=== PATIENT | female | born 1970 | race Caucasian/White ===

== ENCOUNTER → 2016-08-28 | Day surgery (SDC) | payer BC ==
[~2016-08-28] MED LIST: BUPIVACAINE/EPINEPHRINE 0.25% 50 ML VIAL ONE; KETOROLAC TROMETHAMINE 30 MG/ML (IVP) VIAL IV PUSH ONE; LACTATED RINGER'S 1000 ML INJ 1,000 ML ONE; MEPERIDINE HCL 50 MG/ML VIAL ONE; MIDAZOLAM HCL 2 MG/2 ML VIAL ONE; MORPHINE SULFATE 4 MG/ML INJ ONE; NEOMYCIN/POLYMYXIN/BACITRACIN OINT 15 GM TUBE ONE; ONDANSETRON HCL 4 MG/2 ML VIAL IV PUSH ONE; PROPOFOL 200 MG/20 ML AMP IV ONE; XANA1TAB2 PO; ceFAZolin 2 GM PREMIX 50 ML ONE
--- NOTE | 2016-08-28 14:22 | TN ---
cc: NGUYỄN PITT M.D. DATE OF SURGERY: 08/28/2016 PREOPERATIVE DIAGNOSIS 1. Symptomatic enlarging supraumbilical hernia. 2. Hypertrophic scar umbilicus. POSTOPERATIVE DIAGNOSIS 1. Symptomatic enlarging supraumbilical hernia. 2. Hypertrophic scar umbilicus. PROCEDURE PERFORMED 1. Primary repair supraumbilical hernia. 2. Excision hypertrophic scar umbilicus. SURGEON Nguyễn Pitt MD ANESTHESIA General LMA. COMPLICATIONS None. INDICATION FOR PROCEDURE Ms. Crockett is a pleasant 46-year-old female who had a symptomatic enlarging mass just above her umbilicus. The patient does a lot of exercise and this made the mass larger and more uncomfortable. She was seen and evaluated and found to have a supraumbilical hernia. She was offered elective repair. The patient also had some redundant hypertrophic scar in her umbilicus from a previous laparoscopy. She asked if this could be excised at the same time. Risks and benefits of the procedures was discussed with her and she was agreeable. DETAILS OF PROCEDURE The patient was identified, brought to the operating room and placed supine on the operating table. After adequate general anesthesia was achieved with LMA, the anterior abdomen was prepped and draped in standard surgical fashion. Supraumbilical skin and subcutaneous tissue was anesthetized with 0.25% Marcaine. Supraumbilical incision was made. Dissection was carried down to subcutaneous tissue to the abdominal wall fascia. The abdominal wall fascia was then followed up where a small defect was identified with preperitoneal fat protruding through it. The fat was dissected circumferentially from the subcutaneous fat. Fat was then excised using electrocautery Bovie. The fascial defect was quite small and it was able to be closed primarily using a 0-Prolene interrupted x2. Once we did this the defect was closed under no tension. Attention was directed to the hypertrophic scar in the umbilicus. 0.25% Marcaine was injected around this. The hypertrophic scar was then grasped and then dissected out with a scalpel. It was excised and discarded. The defect was then closed with a 5-0 Monocryl interrupted x3. The umbilical incision was closed with 4-0 Monocryl. Sterile dressings were applied and the patient was awakened, brought to recovery in stable condition. MD JULIO Crawley/NATHEN /12:00 PM /2:13 PM
== END | disposition home or self-care (01) ==
LOC: ESDC 09:32
PROVIDERS: ATTEND Surgery Trauma Surgery
DX: K43.9 Ventral hernia without obstruction or gangrene (principal); L91.0 Hypertrophic scar
CPT/HCPCS: 00400; 00750; 13100; 49585; J0690; J1885; J2175; J2250; J2270; J2405; J3010; J7120

== ENCOUNTER 2016-11-29 17:13 | Emergency (ER) | payer BC ==
[~2016-11-29] VITALS: Ht 162.6 cm; Wt 56.9 kg
[~2016-11-29 17:13] MED LIST changes: -BUPIVACAINE/EPINEPHRINE 0.25% 50 ML VIAL ONE; -KETOROLAC TROMETHAMINE 30 MG/ML (IVP) VIAL IV PUSH ONE; -LACTATED RINGER'S 1000 ML INJ 1,000 ML ONE; -MEPERIDINE HCL 50 MG/ML VIAL ONE; -MIDAZOLAM HCL 2 MG/2 ML VIAL ONE; -MORPHINE SULFATE 4 MG/ML INJ ONE; -NEOMYCIN/POLYMYXIN/BACITRACIN OINT 15 GM TUBE ONE; -ONDANSETRON HCL 4 MG/2 ML VIAL IV PUSH ONE; -PROPOFOL 200 MG/20 ML AMP IV ONE; -ceFAZolin 2 GM PREMIX 50 ML ONE
[2016-11-29 17:20] VITALS: BP 115/58; PULSE 86; RESP 20; TEMP 97.9; O2SAT 98
[2016-11-29] MEDS ORDERED: SODIUM CHLOR 0.9% 1000 ML INJ 1,000 ML IV SCH (18:08)
[2016-11-29] MEDS ORDERED: ONDANSETRON HCL 4 MG/2 ML VIAL IVP ONE (18:15)
[2016-11-29] MEDS ORDERED: SODIUM CHLORIDE 0.9% FLUSH 10 ML FLUSH IV FLUSH PRN (18:15)
--- NOTE | 2016-11-29 18:18 | PD ---
HPI Chief Complaint: Flank/Kidney Pain Time Seen by Provider: 18:00 Travel History International Travel<30 days: No Contact w/Intl Traveler<30days: No Traveled to known affect area: No History of Present Illness HPI The patient is a 46-year-old female who presents emergency department for left flank pain at 3 days' duration. The patient notes left flank pain for last 3 days which is in the mid lumbar region and radiates to the left flank. She does complain of mild frequency with urination but denies any dysuria, urgency, or hematuria. The patient does have a history of similar symptoms in the past secondary to kidney stones and notes she is had multiple lithotripsies performed in the past and one previous stent placed by her urologist, Dr. Chawla. The patient has also been evaluated at the [facility] in the past for her recurrent kidney stones. She denies any fever, chills, or sweats. She does complain of mild nausea but denies any vomiting. Symptoms are moderate, possibly exacerbated by history of kidney stones, and there are no current alleviating factors. PFSH Past Medical History Asthma: Yes (BRONCHITIS) Blood Disorders: No Anxiety: No Depression: No Cancer: No Cardiovascular Problems: No Chest Pain: Yes (NEW) Diabetes: No Diminished Hearing: No Endocrine: No Glaucoma: No Genitourinary: Yes (KIDNEY STONES) Hepatitis: No Hiatal Hernia: No Hypertension: No Immune Disorder: No Kidney Stones: Yes Musculoskeletal: No Neurologic: No Psychiatric: No Reproductive: No Respiratory: No Thyroid Disease: No LMP: 5 DAYS AGO : 3 Para: 1 Miscarriage: 1 : 1 Past Surgical History AICD: No Body Medical Devices: BREAST IMPLANTED Ear Surgery: No Endocrine Surgery: No Eye Surgery: No Genitourinary Surgery: Yes (LITHOTRIPSY X 4/CYSTOSCOPY) Gynecologic Surgery: No Joint Replacement: No Oral Surgery: No Pacemaker: No Thoracic Surgery: No Other Surgery: Yes (KIDNEY STONE REMOVAL) Social History Alcohol Use: No Tobacco Use: No (QUIT 08/02) Substance Use: No Allergies-Medications (Allergen,Severity, Reaction): Coded Allergies: Acetaminophen (Verified Allergy, Severe, HIVES/STOMACH UPSET, 11/29/16) Reported Meds & Prescriptions Reported Meds & Active Scripts Active Reported Xanax (Alprazolam) 1 Mg Tab 1 Mg PO Q6H PRN Review of Systems Except as stated in HPI: all other systems reviewed are Neg General / Constitutional: No: Fever Cardiovascular: No: Chest Pain or Discomfort Respiratory: No: Shortness of Breath Gastrointestinal: Positive: Nausea, No: Vomiting, Diarrhea, Abdominal Pain Genitourinary: Positive: Flank Pain, No: Urgency, Dysuria, Hematuria Skin: No Rash Physical Exam Narrative GENERAL: Awake, alert, pleasant 46 year-old female who appears her stated age and is in no acute respiratory distress. SKIN: Focused skin assessment warm/dry. HEAD: Atraumatic. Normocephalic. EYES: Pupils equal and round. No scleral icterus. No injection or drainage. ENT: No nasal bleeding or discharge. Mucous membranes pink and moist. NECK: Trachea midline. No JVD. CARDIOVASCULAR: Regular rate and rhythm. No murmur appreciated. RESPIRATORY: No accessory muscle use. Clear to auscultation. Breath sounds equal bilaterally. GASTROINTESTINAL: Abdomen soft, minimal left flank tenderness. Back: Left CVA tenderness. MUSCULOSKELETAL: No obvious deformities. No clubbing. No cyanosis. No edema. NEUROLOGICAL: Awake and alert. No obvious cranial nerve deficits. Motor grossly within normal limits. Normal speech. PSYCHIATRIC: Appropriate mood and affect; insight and judgment normal. Data Data Last Documented VS Vital Signs Date Time Temp Pulse Resp B/P Pulse Ox O2 Delivery O2 Flow Rate FiO2 11/29/16 18:36 16 99 11/29/16 17:20 97.9 86 115/58 Orders Complete Blood Count With Diff (11/29/16 18:08) Comprehensive Metabolic Panel (11/29/16 18:08) Lipase (11/29/16 18:08) Urinalysis - C+S If Indicated (11/29/16 18:08) Ct Abd/Pel W/O Iv Contrast (11/29/16 18:08) Iv Access Insert/Monitor (11/29/16 18:08) Ecg Monitoring (11/29/16 18:08) Oximetry (11/29/16 18:08) Ondansetron Inj (Zofran Inj) (11/29/16 18:15) Sodium Chlor 0.9% 1000 Ml Inj (Ns 1000 M (11/29/16 18:08) Sodium Chloride 0.9% Flush (Ns Flush) (11/29/16 18:15) Ed Urine Pregnancytest Poc (11/29/16 18:08) Labs Laboratory Tests Test 11/29/16 11/29/16 18:30 18:35 Urine Color STRAW Urine Turbidity CLOUDY Urine pH 7.0 Urine Specific [place] 1.010 Urine Protein NEG mg/dL Urine Glucose (UA) NEG mg/dL Urine Ketones NEG mg/dL Urine Occult Blood NEG Urine Nitrite NEG Urine Bilirubin NEG Urine Leukocyte Esterase NEG Urine RBC 0-2 /hpf Urine WBC 0-2 /hpf Urine Squamous Epithelial 0-5 /hpf Cells Urine Amorphous Sediment LARGE Urine Bacteria NONE /hpf Microscopic Urinalysis Comment CULT NOT INDICATED White Blood Count 8.2 TH/MM3 Red Blood Count 4.09 MIL/MM3 Hemoglobin 11.1 GM/DL Hematocrit 34.1 % Mean Corpuscular Volume 83.5 FL Mean Corpuscular Hemoglobin 27.3 PG Mean Corpuscular Hemoglobin 32.6 % Concent Red Cell Distribution Width 14.7 % Platelet Count 228 TH/MM3 Mean Platelet Volume 9.1 FL Neutrophils (%) (Auto) 54.3 % Lymphocytes (%) (Auto) 28.7 % Monocytes (%) (Auto) 8.5 % Eosinophils (%) (Auto) 5.7 % Basophils (%) (Auto) 2.8 % Neutrophils # (Auto) 4.4 TH/MM3 Lymphocytes # (Auto) 2.4 TH/MM3 Monocytes # (Auto) 0.7 TH/MM3 Eosinophils # (Auto) 0.5 TH/MM3 Basophils # (Auto) 0.2 TH/MM3 CBC Comment DIFF FINAL Differential Comment Sodium Level 140 MEQ/L Potassium Level 4.3 MEQ/L Chloride Level 106 MEQ/L [facility] Medical Decision Making Medical Screen Exam Complete: Yes Emergency Medical Condition: Yes Medical Record Reviewed: Yes Differential Diagnosis Differential diagnoses includes nephrolithiasis, hydronephrosis, pyelonephritis , diverticulitis, ovarian torsion, ectopic , lower lobe pneumonia. Narrative Course IV was established, labs are drawn and sent, and the patient was placed on cardiac telemetry monitoring and continuous pulse oximetry monitoring. The patient declined pain medication, she was administered Zofran 4 mg intravenously with 1 L of normal saline. UA was sent to lab. Bedside UA test was obtained. Noncontrast CT of the abdomen and pelvis was ordered to evaluate for nephrolithiasis. Bedside UA test was negative. The patient was signed out at 7 PM with laboratory evaluation and CT of the abdomen and pelvis pending. Diagnosis Primary Impression: Left flank pain Condition: Stable Davion Larson MD Nov 29, 2016 18:18
[2016-11-29 18:36] VITALS: RESP 16; O2SAT 99
[2016-11-29 18:37] LABS: BLOOD, URINE NEG (NEG); GLUCOSE,URINE NEG (NEG); KETONE, URINE NEG (NEG); NITRITE,URINE NEG (NEG)
[2016-11-29 18:46] LABS: AUTOMATED NEUTROPHIL # 4.4 TH/MM3 (1.8-7.7); BASOPHIL # 0.2 TH/MM3 (0-0.2); BASOPHIL % 2.8 % (0.0-2.0); EOSINOPHIL # 0.5 TH/MM3 (0-0.4); EOSINOPHIL % 5.7 % (0.0-4.0); HEMATOCRIT 34.1 % (35.0-46.0); HEMO FLAGS DIFF FINAL; LYMPH % 28.7 % (9.0-44.0); LYMPHOCYTE # 2.4 TH/MM3 (1.0-4.8); MEAN CELL VOLUME 83.5 FL (80.0-100.0); MEAN CORPUSCULAR HEMOGLOBIN 27.3 PG (27.0-34.0); MEAN CORPUSCULAR HGB CONC 32.6 % (32.0-36.0); MONO % 8.5 % (0.0-8.0); NEUT % 54.3 % (16.0-70.0); PLATELET COUNT 228 TH/MM3 (150-450); RED BLOOD COUNT 4.09 MIL/MM3 (4.00-5.30); RED CELL DISTRIBUTION WIDTH 14.7 % (11.6-17.2); WHITE BLOOD COUNT 8.2 TH/MM3 (4.0-11.0)
[2016-11-29 18:53] LABS: CHLORIDE 106 MEQ/L (98-107); POTASSIUM 4.3 MEQ/L (3.5-5.1); SODIUM (NA) 140 MEQ/L (136-145)
[2016-11-29 18:53] LABS: RBC, URINE 0-2 /hpf (0-3); SQUAMOUS EPITHELIAL CELL URINE 0-5 /hpf (0-5); URINE COLOR STRAW (YELLW/STRAW); WBC, URINE 0-2 /hpf (0-5)
[2016-11-29 18:54] LABS: COMMENT (UR) CULT NOT INDICATED; CULTURE IF INDICATED CULT NOT INDICATED
[2016-11-29 18:59] LABS: ANION GAP 6 MEQ/L (5-15); BICARBONATE 28.4 MEQ/L (21.0-32.0); BLOOD UREA NITROGEN 11 MG/DL (7-18)
[2016-11-29 19:02] LABS: ALT (GPT) 57 U/L (10-53); AST (GOT) 44 U/L (15-37); GLOMERULAR FILTRATION RATE 68 ML/MIN (>89)
[2016-11-29 19:03] LABS: TOTAL BILIRUBIN ADULT 0.4 MG/DL (0.2-1.0)
[2016-11-29 19:05] LABS: ALKALINE PHOSPHATASE 60 U/L (45-117)
--- NOTE | 2016-11-29 19:11 | RADRPT ---
EXAM DATE/TIME: 11/29/2016 18:46 [place] COMPARISON: No previous studies available for comparison. INDICATIONS : Left flank pain. ORAL CONTRAST: No oral contrast ingested. RADIATION DOSE: 6.51 CTDIvol (mGy) MEDICAL HISTORY : Hernia, umbilical. Renal calculi. Ovarian cysts. SURGICAL HISTORY : Umbilical hernia repair. Ovarian cyst removal. ENCOUNTER: Initial ACUITY: 2 days PAIN SCALE: 8/10 LOCATION: Left flank TECHNIQUE: Volumetric scanning of the abdomen and pelvis was performed. Using automated exposure control and ad justment of the mA and/or kV according to patient size, radiation dose was kept as low as reasonably achievable to obtain optimal diagnostic quality images. DICOM format image data is available electro nically for review and comparison. FINDINGS: LOWER LUNGS: The visualized lower lungs are clear. LIVER: Homogeneous density without lesion. There is no dilation of the biliary tree. No calcified gallston es. SPLEEN: Normal size without lesion. PANCREAS: Within normal limits. KIDNEYS: Normal in size and shape. There is no mass, stone, or hydronephrosis. ADRENAL GLANDS: Within normal limits. VASCULAR: There is no aortic aneurysm. BOWEL/MESENTERY: The stomach, small bowel, and colon demonstrate no acute abnormality. There is no free intraperitone al air or fluid. ABDOMINAL WALL: Within normal limits. RETROPERITONEUM: There is no lymphadenopathy. BLADDER: No wall thickening or mass. REPRODUCTIVE: Within normal limits. INGUINAL: There is no lymphadenopathy or hernia. MUSCULOSKELETAL: Within normal limits for patient age. CONCLUSION: 1. No acute findings. Mild constipation. Joe Douglas MD on November 29, 2016 at 19:06 Board Certified Radiologist. This report was verified electronically.
--- NOTE | 2016-11-29 20:20 | PD ---
Physical Exam Time Seen by Provider: 20:[address] Larson left this patient for me to check the results of the CT abdomen and pelvis and, if normal, discharge. Data Data Last Documented VS Vital Signs Date Time Temp Pulse Resp B/P Pulse Ox O2 Delivery O2 Flow Rate FiO2 11/29/16 18:36 16 99 11/29/16 17:20 97.9 86 115/58 Orders Complete Blood Count With Diff (11/29/16 18:08) Comprehensive Metabolic Panel (11/29/16 18:08) Lipase (11/29/16 18:08) Urinalysis - C+S If Indicated (11/29/16 18:08) Ct Abd/Pel W/O Iv Contrast (11/29/16 18:08) Iv Access Insert/Monitor (11/29/16 18:08) Ecg Monitoring (11/29/16 18:08) Oximetry (11/29/16 18:08) Ondansetron Inj (Zofran Inj) (11/29/16 18:15) Sodium Chlor 0.9% 1000 Ml Inj (Ns 1000 M (11/29/16 18:08) Sodium Chloride 0.9% Flush (Ns Flush) (11/29/16 18:15) Ed Urine Pregnancytest Poc (11/29/16 18:08) Labs Laboratory Tests Test 11/29/16 11/29/16 18:30 18:35 Urine Color STRAW Urine Turbidity CLOUDY Urine pH 7.0 Urine Specific [place] 1.010 Urine Protein NEG mg/dL Urine Glucose (UA) NEG mg/dL Urine Ketones NEG mg/dL Urine Occult Blood NEG Urine Nitrite NEG Urine Bilirubin NEG Urine Leukocyte Esterase NEG Urine RBC 0-2 /hpf Urine WBC 0-2 /hpf Urine Squamous Epithelial 0-5 /hpf Cells Urine Amorphous Sediment LARGE Urine Bacteria NONE /hpf Microscopic Urinalysis Comment CULT NOT INDICATED White Blood Count 8.2 TH/MM3 Red Blood Count 4.09 MIL/MM3 Hemoglobin 11.1 GM/DL Hematocrit 34.1 % Mean Corpuscular Volume 83.5 FL Mean Corpuscular Hemoglobin 27.3 PG Mean Corpuscular Hemoglobin 32.6 % Concent Red Cell Distribution Width 14.7 % Platelet Count 228 TH/MM3 Mean Platelet Volume 9.1 FL Neutrophils (%) (Auto) 54.3 % Lymphocytes (%) (Auto) 28.7 % Monocytes (%) (Auto) 8.5 % Eosinophils (%) (Auto) 5.7 % Basophils (%) (Auto) 2.8 % Neutrophils # (Auto) 4.4 TH/MM3 Lymphocytes # (Auto) 2.4 TH/MM3 Monocytes # (Auto) 0.7 TH/MM3 Eosinophils # (Auto) 0.5 TH/MM3 Basophils # (Auto) 0.2 TH/MM3 CBC Comment DIFF FINAL Differential Comment Sodium Level 140 MEQ/L Potassium Level 4.3 MEQ/L Chloride Level 106 MEQ/L Carbon Dioxide Level 28.4 MEQ/L Anion Gap 6 MEQ/L Blood Urea Nitrogen 11 MG/DL Creatinine 0.89 MG/DL Estimat Glomerular Filtration 68 ML/MIN Rate Random Glucose 95 MG/DL Calcium Level 8.7 MG/DL Total Bilirubin 0.4 MG/DL Aspartate Amino Transf 44 U/L (AST/SGOT) Alanine Aminotransferase 57 U/L (ALT/SGPT) Alkaline Phosphatase 60 U/L Total Protein 7.6 GM/DL Albumin 3.3 GM/DL Lipase 166 U/L [facility] Medical Record Reviewed: Yes Supervised Visit with SHAWANDA: Yes Interpretation(s) The CBC is normal except for hemoglobin of 11.1 and hematocrit of 34.1. The complete metabolic profile shows a GFR of 68, AST of 44, ALT of 57, albumin of 3.3 but is otherwise normal. The lipase is normal. The urinalysis shows cloudy turbidity with large amorphous sediment but is otherwise normal and culture is not indicated. The CT scan showed no cause for the patient's pain, specifically no ureteral stone. Differential Diagnosis Urinary tract infection, ureteral stone, diverticulitis, colitis Narrative Course I can reproduce the pain by pressing on the insulin the ribs in the area where the patient perceives her pain. This pain is likely musculoskeletal. She does not have any evidence of urinary infection or urinary stone. Diagnosis Primary Impression: Left flank pain Additional Instruction: As we discussed, take 2 or 3 [id number] Motrin tablets 3 times daily to develop high anti-inflammatory levels. After for 5 days this should result in a decrease in the pain. Follow-up with your primary care physician next week. Med/Other Pt SpecificInfo: No Change to Meds Disposition: 01 DISCHARGE HOME Condition: Stable Luis Krishnan MD Nov 29, 2016 20:20
[2016-11-29 20:33] VITALS: BP 90/58; TEMP 97.5
== END 2016-11-29 20:34 | disposition home or self-care (01) ==
LOC: PHED 17:13
DX: R10.9 Unspecified abdominal pain (principal); M54.5 Low back pain; R35.0 Frequency of micturition; R11.0 Nausea; Z87.442 Personal history of urinary calculi; Z87.09 Personal history of other diseases of the respiratory system
CPT/HCPCS: 74176; 80053; 81001; 83690; 84703; 85025; 96361; 96374; 99285; J2405; J7030

== ENCOUNTER 2017-09-20 09:38 | Emergency (ER) | payer BC ==
[~2017-09-20] VITALS: Ht 162.6 cm; Wt 52.8 kg
[2017-09-20 09:43] VITALS: BP 115/55; PULSE 76; RESP 16; TEMP 98.4; O2SAT 98
--- NOTE | 2017-09-20 09:52 | PD ---
HPI Chief Complaint: Abdominal Pain Time Seen by Provider: 09:50 Travel History International Travel<30 days: No Contact w/Intl Traveler<30days: No Traveled to known affect area: No History of Present Illness HPI Patient comes in complaining of an epigastric upper abdominal pain that has been going on for at least the past year. However her GI DrRazia Cortez has not followed up with her about it since she had endoscopy colonoscopy about 4 years ago. Patient describes discomfort as sharp, epigastric region, radiating towards her back, and associated with nausea but without vomiting or diarrhea. States that it has worsened by eating or drinking immediately after eating or drinking within 3 minutes patient states that she has worsening pain to her epigastrium. This last episode started last night she tried to hold off and see if it would improve on its own, however it did not. States allergy to Tylenol Past medical history significant for bronchitis, elevated liver enzymes, ovarian cyst, kidney stones, anxiety, breast augmentation PFSH Past Medical History Asthma: Yes (BRONCHITIS) Blood Disorders: No Anxiety: Yes Depression: No Cancer: No Cardiovascular Problems: No Chest Pain: Yes Diabetes: No Diminished Hearing: No Endocrine: No Gastrointestinal Disorders: Yes ( HX of LIVER ELEVATED ENZMES) Glaucoma: No Genitourinary: Yes (KIDNEY STONES) Hepatitis: No Hiatal Hernia: No Hypertension: No Immune Disorder: No Kidney Stones: Yes Musculoskeletal: No Neurologic: No Psychiatric: No Reproductive: No Respiratory: No Thyroid Disease: No LMP: on it now : 3 Para: 1 Miscarriage: 1 : 1 Ovarian Cysts: Yes Past Surgical History Abdominal Surgery: Yes (umbilical hernia repair) AICD: No Body Medical Devices: BREAST IMPLANTED Ear Surgery: No Endocrine Surgery: No Eye Surgery: No Genitourinary Surgery: Yes (LITHOTRIPSY -several /CYSTOSCOPY and stent placement for kidney stones) Gynecologic Surgery: Yes (cyst removal) Joint Replacement: No Oral Surgery: No Pacemaker: No Thoracic Surgery: No Other Surgery: Yes (KIDNEY STONE REMOVAL) Social History Alcohol Use: No Tobacco Use: No (quit approx 6 yrs ago smoked cigs 6-7 a week) Substance Use: No Allergies-Medications (Allergen,Severity, Reaction): Coded Allergies: acetaminophen (Unverified Allergy, Severe, HIVES/STOMACH UPSET, 09/20/17) Reported Meds & Prescriptions Reported Meds & Active Scripts Active Ultram (Tramadol HCl) 50 Mg Tab 50 Mg PO Q6H PRN 3 Days Omeprazole 40 Mg Cap 40 Mg PO DAILY Carafate (Sucralfate) 1 Gram Tab 1 Gm PO TID On empty stomach Reported Xanax (Alprazolam) 1 Mg Tab 1 Mg PO Q6H PRN Review of Systems General / Constitutional: No: Fever Eyes: No: Visual changes HENT: No: Headaches Cardiovascular: No: Chest Pain or Discomfort Respiratory: No: Shortness of Breath Gastrointestinal: Positive: Nausea, Abdominal Pain Genitourinary: No: Dysuria Musculoskeletal: No: Pain Skin: No Rash Neurologic: No: Weakness Psychiatric: No: Depression Endocrine: No: Polydipsia Hematologic/Lymphatic: No: Easy Bruising Physical Exam Narrative GENERAL: SKIN: Warm and dry. HEAD: Atraumatic. Normocephalic. EYES: Pupils equal and round. No scleral icterus. No injection or drainage. ENT: No nasal bleeding or discharge. Mucous membranes pink and moist. NECK: Trachea midline. No JVD. CARDIOVASCULAR: Regular rate and rhythm. RESPIRATORY: No accessory muscle use. Clear to auscultation. Breath sounds equal bilaterally. GASTROINTESTINAL: Abdomen soft, epigastrium tender to percussion , nondistended. No rebound/guarding/rigidity MUSCULOSKELETAL: Extremities without clubbing, cyanosis, or edema. No obvious deformities. NEUROLOGICAL: Awake and alert. No obvious cranial nerve deficits. Motor grossly within normal limits. Five out of 5 muscle strength in the arms and legs. Normal speech. PSYCHIATRIC: Appropriate mood and affect; insight and judgment normal. Data Data Last Documented VS Vital Signs Date Time Temp Pulse Resp B/P (MAP) Pulse Ox O2 Delivery O2 Flow Rate FiO2 09/20/17 10:25 16 100 Room Air 09/20/17 09:43 98.4 76 115/55 (75) Orders Orders Complete Blood Count With Diff (09/20/17 10:06) Comprehensive Metabolic Panel (09/20/17 10:06) Lipase (09/20/17 10:06) Urinalysis - C+S If Indicated (09/20/17 10:06) Ct Abd/Pel W Iv Contrast(Rout) (09/20/17 10:06) Iv Access Insert/Monitor (09/20/17 10:06) Ecg Monitoring (09/20/17 10:06) Oximetry (09/20/17 10:06) NPO (09/20/17 10:06) Morphine Inj (Morphine Inj) (09/20/17 10:15) Sodium Chlor 0.9% 1000 Ml Inj (Ns 1000 M (09/20/17 10:06) Sodium Chloride 0.9% Flush (Ns Flush) (09/20/17 10:15) Ed Urine Pregnancytest Poc (09/20/17 10:06) Ondansetron Odt (Zofran Odt) (09/20/17 10:15) Iohexol 350 Inj (Omnipaque 350 Inj) (09/20/17 11:08) Labs Laboratory Tests Test 09/20/17 10:10 09/20/17 10:45 White Blood Count 4.6 TH/MM3 Red Blood Count 4.03 MIL/MM3 Hemoglobin 10.2 GM/DL Hematocrit 30.3 % Mean Corpuscular Volume 75.2 FL Mean Corpuscular Hemoglobin 25.4 PG Mean Corpuscular Hemoglobin Concent 33.8 % Red Cell Distribution Width 17.9 % Platelet Count 250 TH/MM3 Mean Platelet Volume 10.2 FL Neutrophils (%) (Auto) 53.0 % Lymphocytes (%) (Auto) 31.1 % Monocytes (%) (Auto) 8.3 % Eosinophils (%) (Auto) 3.9 % Basophils (%) (Auto) 3.7 % Neutrophils # (Auto) 2.4 TH/MM3 Lymphocytes # (Auto) 1.4 TH/MM3 Monocytes # (Auto) 0.4 TH/MM3 Eosinophils # (Auto) 0.2 TH/MM3 Basophils # (Auto) 0.2 TH/MM3 CBC Comment DIFF FINAL Differential Comment Blood Urea Nitrogen 9 MG/DL Creatinine 0.72 MG/DL Random Glucose 100 MG/DL Total Protein 7.8 GM/DL Albumin 3.4 GM/DL Calcium Level 8.6 MG/DL Alkaline Phosphatase 56 U/L Aspartate Amino Transf (AST/SGOT) 101 U/L Alanine Aminotransferase (ALT/SGPT) 116 U/L Total Bilirubin 0.7 MG/DL Sodium Level 140 MEQ/L Potassium Level 3.9 MEQ/L Chloride Level 106 MEQ/L Carbon Dioxide Level 26.0 MEQ/L Anion Gap 8 MEQ/L Estimat Glomerular Filtration Rate 87 ML/MIN Lipase 165 U/L Urine Collection Type CLEAN CATCH Urine Color YELLOW Urine Turbidity CLEAR Urine pH 6.0 Urine Specific [place] LESS/EQUAL 1.005 Urine Protein NEG mg/dL Urine Glucose (UA) NEG mg/dL Urine Ketones NEG mg/dL Urine Occult Blood MOD Urine Nitrite NEG Urine Bilirubin NEG Urine Urobilinogen 0.2 MG/DL Urine Leukocyte Esterase NEG Urine RBC 4-9 /hpf Urine Squamous Epithelial Cells 0-5 /hpf Microscopic Urinalysis Comment CULT NOT INDICATED MDM Medical Decision Making Medical Screen Exam Complete: Yes Emergency Medical Condition: Yes Medical Record Reviewed: Yes Differential Diagnosis Pancreatitis versus hepatitis versus gastritis versus peptic ulcer versus biliary colic versus transverse colitis Narrative Course CBC shows no leukocytosis, anemia of 10/30, normal platelet count, no left shift UA is negative for UTI Electrolytes are all within normal limits, normal kidney and pancreatic functions. AST and ALT are both elevated at 101 and 160s respectively. However the bilirubin is 0.7 and the alk phos is 56 which is normal, this is most consistent with intrinsic liver disease, and early disease so this is not require admission for further evaluation and the patient could just follow up with outpatient evaluation CT abdomen and pelvis shows nonobstructive bowel gas pattern, a 1.6 cm low- attenuation lesion in the left lobe of the liver is noted which is most likely a hemangioma. There is also no evidence of any free fluid, or free air. Diagnosis Primary Impression: Dyspeptic syndrome Patient Instructions: Diet for Stomach Ulcers and Gastritis (ED), General Instructions, Peptic Ulcer (ED) Scripts Tramadol (Ultram) 50 Mg Tab 50 MG PO Q6H Y for BREAKTHROUGH PAIN for 3 Days, #12 TAB 0 Refills Prov: Jose Mcdaniel MD 09/20/17 Omeprazole (Omeprazole) 40 Mg Cap 40 MG PO DAILY, #30 CAP 2 Refills Prov: Jose Mcdaniel MD 09/20/17 Sucralfate (Carafate) 1 Gram Tab 1 GM PO TID for Ulcer Prevention, #90 TAB 0 Refills On empty stomach Prov: Jose Mcdaniel MD 09/20/17 Disposition: 01 DISCHARGE HOME Condition: Stable Jose Mcdaniel MD September 20, 2017 09:52
[2017-09-20] MEDS ORDERED: SODIUM CHLOR 0.9% 1000 ML INJ 1,000 ML IV SCH (10:06)
[2017-09-20] MEDS ORDERED: SODIUM CHLORIDE 0.9% FLUSH 10 ML FLUSH IV FLUSH PRN (10:15)
[2017-09-20] MEDS ORDERED: MORPHINE SULFATE 4 MG/ML INJ IV PUSH ONE (10:15)
[2017-09-20] MEDS ORDERED: ONDANSETRON ODT 4 MG TAB PO ONE (10:15)
[2017-09-20 10:16] LABS: AUTOMATED NEUTROPHIL # 2.4 TH/MM3 (1.8-7.7); BASOPHIL # 0.2 TH/MM3 (0-0.2); BASOPHIL % 3.7 % (0.0-2.0); EOSINOPHIL # 0.2 TH/MM3 (0-0.4); EOSINOPHIL % 3.9 % (0.0-4.0); HEMATOCRIT 30.3 % (35.0-46.0); HEMOGLOBIN 10.2 GM/DL (11.6-15.3); LYMPH % 31.1 % (9.0-44.0); LYMPHOCYTE # 1.4 TH/MM3 (1.0-4.8); MEAN CELL VOLUME 75.2 FL (80.0-100.0); MEAN CORPUSCULAR HEMOGLOBIN 25.4 PG (27.0-34.0); MEAN CORPUSCULAR HGB CONC 33.8 % (32.0-36.0); MEAN PLATELET VOLUME 10.2 FL (7.0-11.0); MONO % 8.3 % (0.0-8.0); MONOCYTE # 0.4 TH/MM3 (0-0.9); PLATELET COUNT 250 TH/MM3 (150-450); RED BLOOD COUNT 4.03 MIL/MM3 (4.00-5.30); RED CELL DISTRIBUTION WIDTH 17.9 % (11.6-17.2); WHITE BLOOD COUNT 4.6 TH/MM3 (4.0-11.0)
[2017-09-20 10:25] VITALS: RESP 16; O2SAT 100
[2017-09-20 10:25] LABS: CHLORIDE 106 MEQ/L (98-107); SODIUM (NA) 140 MEQ/L (136-145)
[2017-09-20 10:29] LABS: ALBUMIN 3.4 GM/DL (3.4-5.0); BLOOD UREA NITROGEN 9 MG/DL (7-18); CALCIUM 8.6 MG/DL (8.5-10.1); GLUCOSE,RANDOM 100 MG/DL (74-106)
[2017-09-20 10:32] LABS: ALT (GPT) 116 U/L (10-53); AST (GOT) 101 U/L (15-37); CREATININE 0.72 MG/DL (0.50-1.00); GLOMERULAR FILTRATION RATE 87 ML/MIN (>89)
[2017-09-20 10:34] LABS: TOTAL BILIRUBIN ADULT 0.7 MG/DL (0.2-1.0); TOTAL PROTEIN 7.8 GM/DL (6.4-8.2)
[2017-09-20 10:35] LABS: ALKALINE PHOSPHATASE 56 U/L (45-117)
[2017-09-20 10:53] LABS: BILIRUBIN, URINE NEG (NEG); BLOOD, URINE MOD (NEG); GLUCOSE,URINE NEG (NEG); KETONE, URINE NEG (NEG); NITRITE,URINE NEG (NEG); URINE COLOR YELLOW (YELLW/STRAW); URINE LEUKOCYTE ESTERASE NEG (NEG)
[2017-09-20] MEDS ORDERED: IOHEXOL 350 MG/ML 10 ML VIAL (for RAD DIAG) IVCONTRAST ONE (11:08)
[2017-09-20 11:14] LABS: SQUAMOUS EPITHELIAL CELL URINE 0-5 /hpf (0-5)
--- NOTE | 2017-09-20 11:29 | RADRPT ---
EXAM DATE: 09/20/2017 11:09 AM EDT AGE/SEX: 47 years / Female INDICATIONS: Left upper quadrant pain and nausea. CLINICAL DATA: This is the patient's initial encounter. Patient reports that signs and symptoms have been present for 4 - 6 days and indicates a pain score of 8/10. MEDICAL/SURGICAL HISTORY: Asthma. Renal calculi. Umbilical hernia repair. ORAL CONTRAST: No oral contrast ingested. RADIATION DOSE: 5.27 CTDI (mGy) COMPARISON: [facility], CT ABDOMEN & PELVIS W/O CONTRAST, 11/29/2016. . TECHNIQUE: Multiple contiguous axial images were obtained through the abdomen and pelvis following b olus infusion of 95 ml Omnipaque 350 (iohexol) nonionic water-soluble contrast as a single exam dos e. No oral contrast ingested. Using automated exposure control and adjustment of the mA and/or kV ac cording to patient size, the radiation dose was kept as low as reasonably achievable to obtain optima l diagnostic quality images. FINDINGS: Lower Lungs: The visualized lower lungs are clear. Liver: The liver has a homogeneous density with a 1.6 cm low-attenuation lesion in the left lobe of t he liver. The gallbladder is unremarkable. There is no dilation of the biliary tree. Spleen: Homogeneous density without enlargement. Pancreas: Unremarkable without mass or calcification. Kidneys: Normal in size and shape. No evidence of mass or hydronephrosis. Adrenal Glands: Unremarkable. Aorta: The aorta and proximal iliac vessels are grossly unremarkable without aneurysmal dilation. Bowel/Mesentery: No oral contrast was given limiting the sensitivity of the exam. The bowel loops are grossly unremarkable. The cecum and sigmoid colon have a normal configuration. Abdominal Wall: Intact. Retroperitoneum: No evidence of adenopathy in the retrocrural, para-aortic, or deep pelvic regions. Bladder: Contours are smooth. Reproductive Organs: The uterus is mildly prominent and inhomogeneous. Inguinal: The inguinal region is unremarkable without evidence of adenopathy. Bony Structures: Unremarkable. CONCLUSION: 1. Nonobstructive bowel gas pattern performed without oral contrast with no gross abnormality. 2. No visualized etiology to explain the patient's pain. 3. 1.6 cm low-attenuation lesion in the left lobe of the liver which is nonspecific but likely repre sents a cyst or cavernous hemangioma. Electronically signed by: Tai Joseph MD 09/20/2017 11:27 AM EDT
[2017-09-20] MEDS ORDERED: CARA1TAB6 PO (11:37)
[2017-09-20] MEDS ORDERED: OMEP40CA2 PO (11:37)
[2017-09-20] MEDS ORDERED: TRAM50 PO (11:37)
[2017-09-20 11:50] VITALS: BP 100/61
== END 2017-09-20 11:58 | disposition home or self-care (01) ==
LOC: PHED 09:38
DX: R10.13 Epigastric pain (principal); J40 Bronchitis, not specified as acute or chronic; F41.9 Anxiety disorder, unspecified; Z87.891 Personal history of nicotine dependence
CPT/HCPCS: 74177; 80053; 81001; 83690; 84703; 85025; 96361; 96374; 99284; J2270; J7030; Q9967